=== PATIENT | male | born 1980 | race Caucasian/White ===

== ENCOUNTER → 2016-10-30 | Outpatient (CLI) | payer BC ==
--- NOTE | ~2016-10-30 | MR39 ---
[facility] A Service of [facility] RADIOLOGY TEXT RESULTS PATIENT: KEVIN MYLES LOCATION: [facility] : 78 UNIT #: [id number] AGE: [address]: Judson Ambrosio MD SEX: M ORDER DR: [id number] [place] [id number] O MR#: [id number] Acc #: [id number] NAME: KEVIN MYLES : 1980 SEX: M STUDY DATE/TIME: 10/30/2016 10:39 UNIT: [facility] ROOM: STUDY DESCRIPTION: MR Elbow W Contrast Rt Attending Physician: Judson Ambrosio M.D. Referring Physician: Judson Ambrosio M.D. Ordering Physician: Judson Ambrosio M.D. Primary Care Physician: Daniel Patel Jr., M.D. MRI CENTER REPORT This report is preliminary unless electronic signature is present. EXAM MRI arthrogram right elbow, 10/30/2016 COMPARISON Right elbow radiographs 12/25/2013 [facility] and right elbow arthrogram 10/30/2016 [facility]; operative report [facility] 04/07/2015 (right elbow arthroscopy with extensive debridement including anterior and posterior compartments, complete synovectomy, resection of the tip of the olecranon, craterization of the humerus, microfracture of the capitellum; report of an MRI arthrogram of the right elbow [facility] 10/27/2014. HISTORY Order states OCD lesion right elbow. Medial elbow pain. History sheet states right elbow osteoarthritis. Persistent pain. New medial side pain with limited range of motion for less than 2 years. Surgery 04/07/2015. No new injury. FINDINGS Multiple series were performed after the fluoroscopic injection of dilute gadolinium contrast at [facility]. There is radiocapitellar joint space narrowing, osteophyte formation, and moderate to high-grade chondromalacia with small subarticular cyst and mild marrow edema. The lateral collateral ligament complex is intact. There is mild common extensor tendinosis without a tear or detachment. The trochlea-ulna articulation demonstrates marginal osteophyte formation especially anteriorly extending into the coronoid process. No high-grade chondromalacia is noted. The ulnar collateral ligament is intact. The common flexor-pronator complex is unremarkable. [facility] A Service of [facility] RADIOLOGY TEXT RESULTS PATIENT: KEVIN MYLES LOCATION: [facility] : 78 UNIT #: [id number] AGE: [address]: Judson Ambrosio MD SEX: M ORDER DR: Biceps, brachialis, and triceps tendons are intact. A small 3.0 mm likely chondral loose body is noted along the anterior medial joint space adjacent to the trochlea. There is olecranon spurring at the olecranon fossa. Neurovascular bundles are unremarkable. No malalignment is noted. IMPRESSION 1. Comparison is made to the operative report of 2014 detailed above as well as outside imaging reports (no images available). 2. Arthritic changes predominately involve the radiocapitellar articulation including moderate and high-grade chondromalacia with tiny subarticular cysts and marrow edema. 3. 3.0 mm anteromedial loose body (likely cartilaginous). 4. Mild common extensor tendinosis. 5. Exam is otherwise unremarkable. Dictated by... Rox Mark M.D. THIS IS AN ELECTRONICALLY VERIFIED REPORT Rox Mark M.D. at 11/01/2016 11:48 AM POOL/jax TD: 10/31/2016 11:58 JOB #: [id number] MRI CENTER REPORT Page 1 of 1
== END | disposition home or self-care (01) ==
LOC: SMRI 10:46
DX: M25.521 Pain in right elbow (principal); M24.021 Loose body in right elbow; M77.8 Other enthesopathies, not elsewhere classified; M94.221 Chondromalacia, right elbow; M25.821 Other specified joint disorders, right elbow; M25.721 Osteophyte, right elbow; M93.221 Osteochondritis dissecans, right elbow; M77.02 Medial epicondylitis, left elbow; M19.021 Primary osteoarthritis, right elbow
CPT/HCPCS: 73222

== ENCOUNTER → 2016-10-30 | Outpatient (CLI) | payer BC ==
--- NOTE | ~2016-10-30 | XA34 ---
[facility] A Service of [facility] RADIOLOGY TEXT RESULTS PATIENT: KEVIN MYLES LOCATION: [facility] : 78 UNIT #: [id number] AGE: [address]: Judson Ambrosio MD SEX: M ORDER DR: [id number] [place] [id number] [facility]. [place], [place] [address] [id number] O MR#: [id number] Acc #: [id number] NAME: KEVIN MYLES : 1980 SEX: M STUDY DATE/TIME: 10/30/2016 9:50 UNIT: [facility] ROOM: STUDY DESCRIPTION: XA Arthrogram Elbow Rt Attending Physician: Judson Ambrosio M.D. Referring Physician: Judson Ambrosio M.D. Ordering Physician: Judson Ambrosio M.D. Primary Care Physician: Daniel Patel Jr., M.D. MEDICAL IMAGING REPORT This report is preliminary unless electronic signature is present EXAM Right elbow arthrogram, inject prior MRI HISTORY Previous elbow surgery with persistent pain. TECHNIQUE The procedure was explained the patient including risks, benefits and complications. Informed consent was obtained. Time-out procedure was utilized. FINDINGS Using sterile technique and following local anesthesia with 1% Xylocaine, the elbow joint was injected with approximately 8 mL of a mixture of 20 mL of Isovue and 0.1 mL of gadolinium. A 25-gauge needle was used. The patient tolerated the procedure well. He will be sent for MRI scanning with results reported separately. IMPRESSION Successful injection of the right elbow with contrast and gadolinium prior to MRI. Total fluoroscopy time 0.5 minutes with 2 spot films obtained. Dictated by... Jagdeep Khanna M.D. THIS IS AN ELECTRONICALLY VERIFIED REPORT Jagdeep Khanna M.D. at 11/01/2016 4:33 PM AMBER/brady TD: 10/30/2016 21:47 [facility] A Service of [facility] RADIOLOGY TEXT RESULTS PATIENT: KEVIN MYLES LOCATION: [facility] #: [id number] : [birth year] UNIT #: [id number] AGE: [address]: Judson Ambrosio MD SEX: M ORDER DR: JOB #: [id number] MEDICAL IMAGING REPORT Page 1 of 1 COPY
== END | disposition home or self-care (01) ==
LOC: CIVR 09:00
DX: M93.221 Osteochondritis dissecans, right elbow (principal); M77.02 Medial epicondylitis, left elbow
CPT/HCPCS: 73085; 73222; A9577; Q9967